=== PATIENT | male | born 2000 | race Two or more races ===

== ENCOUNTER 2023-04-08 08:57 | Emergency (ER) | payer MEDICAID ==
[~2023-04-08] VITALS: Ht 160 cm; Wt 82.2 kg
[2023-04-08 08:57] VITALS: PULSE 89; RESP 18; TEMP 98.1; O2SAT 97
[2023-04-08] MEDS ORDERED: IBUP-1455 PO (10:58)
[2023-04-08] MEDS ORDERED: AZIT4SOL RIGHTEYE (10:58)
[2023-04-08 11:15] VITALS: BP 133/67
== END 2023-04-08 11:24 | disposition home or self-care (01) ==
LOC: ER 08:57
DX: H10.31 Unspecified acute conjunctivitis, right eye (principal)

== ENCOUNTER → 2023-11-20 | Outpatient (CLI) | payer MEDICAID ==
[~2023-11-20] MED LIST: AZIT4SOL RIGHTEYE; IBUP-1455 PO
[2023-11-20 10:42] LABS: Urine Bacteria None Seen /hpf (None Seen)
[2023-11-20 10:52] LABS: Basophils # (auto) 0 10 ^3/uL (0-0.2); Basophils % (auto) 0.6 % (0.0-2.0); Eosinophils # (auto) 0.3 10 ^3/uL (0-0.8); Eosinophils % (auto) 4.1 % (0.0-7.0); Hematocrit 46.4 % (41.0-53.0); Hemoglobin 16.4 g/dL (13.5-17.5); Lymphocytes # (auto) 3.7 10 ^3/uL (0.4-5.4); Lymphocytes % (auto) 49.6 % (10.0-50.0); Mean Corpuscular Hemoglobin 33.6 pg (28.0-32.0); Mean Corpuscular Hgb Conc. 35.3 g/dL (32.0-36.0); Mean Corpuscular Volume 95.1 fL (80.0-100.0); Monocytes # (auto) 0.5 10 ^3/uL (0-1.3); Monocytes % (auto) 6.9 % (0.0-12.0); Neutrophils # (auto) 2.9 10 ^3/uL (1.6-8.6); Neutrophils % (auto) 38.8 % (37.0-80.0); Nucleated Red Blood Cells % 0.1 %; Red Blood Cells 4.88 10^6/uL (4.5-5.90); Red Cell Distribution Width 13.2 % (11.8-14.3); White Blood Cell 7.4 10^3/uL (4.4-10.8)
[2023-11-20 11:08] LABS: Urine Blood Negative /uL (Negative); Urine Clarity Clear (Clear); Urine Color Yellow (Yellow); Urine Protein, UAD TRACE (Negative); Urine Urobilinogen Normal (Negative); Urine WBC 1 /hpf (0 - 3); Urine pH 6.5 (5.0-9.0)
[2023-11-20 11:27] LABS: Alanine Aminotransferase 36 U/L (7-40); Albumin 4.6 g/dL (3.2-4.8); Alkaline Phosphatase 107 U/L (46-116); Anion Gap 8 (5-15); Aspartate Aminotransferase 17 U/L (13-40); BUN/Creatinine Ratio 13.3 (10.0-20.0); Bilirubin, Total 0.5 mg/dL (0.2-1.0); Blood Urea Nitrogen 11 mg/dL (9-23); Calcium 10.1 mg/dL (8.7-10.4); Carbon Dioxide 28 mmol/L (20-30); Chloride 102 mmol/L (98-107); Glucose 109 mg/dL (74-106); Lipase 40 U/L (12-53); Potassium 4.3 mmol/L (3.5-5.1); Sodium 138 mmol/L (136-145); Total Protein 7.6 g/dL (5.7-8.2)
[2023-11-20 11:47] LABS: Cholesterol 192 mg/dL (< 200); HDL Cholesterol 34 mg/dL (40-59); Triglycerides 779 mg/dL (< 150)
[2023-11-20 11:57] LABS: Erythrocyte Sedimentation Rate 10 mm/hr (0-20)
== END | disposition home or self-care (01) ==
LOC: LAB 10:19
PROVIDERS: ATTEND Internal Medicine
DX: R19.7 Diarrhea, unspecified (principal); R10.9 Unspecified abdominal pain; I10 Essential (primary) hypertension
CPT/HCPCS: 36415; 80053; 80061; 81001; 83036; 83690; 84443; 85025; 85652; 86038; 87045; 87427

== ENCOUNTER 2024-04-07 16:41 | Emergency (ER) | payer MEDICAID ==
[~2024-04-07] VITALS: Ht 160 cm; Wt 83.0 kg
[2024-04-07 16:51] VITALS: BP 120/77; PULSE 100; RESP 16; O2SAT 98
== END 2024-04-07 18:52 | disposition left against medical advice (07) ==
LOC: ER 16:43
DX: R21 Rash and other nonspecific skin eruption (principal); Z53.21 Procedure and treatment not carried out due to patient leaving prior to being seen by health care provider

== ENCOUNTER → 2024-05-03 | Outpatient (CLI) | payer MEDICAID | END | disposition home or self-care (01) | LOC: XYW 14:07 | PROVIDERS: ATTEND Internal Medicine | DX: Z01.818 Encounter for other preprocedural examination (principal); R94.31 Abnormal electrocardiogram [ECG] [EKG] | CPT/HCPCS: 93306 ==

== ENCOUNTER 2025-05-17 11:57 | Outpatient (CLI) | payer MEDICAID | END 2025-05-17 17:00 | disposition home or self-care (01) | LOC: LAB 11:57 | PROVIDERS: ATTEND Internal Medicine | DX: R07.9 Chest pain, unspecified (principal) | CPT/HCPCS: 36415; 85379 ==